=== PATIENT | male | born 1995 | race Caucasian/White ===

== ENCOUNTER 2019-08-20 06:10 | Day surgery (SDC) | payer BC ==
[~2019-08-20 06:10] MED LIST: Dextrose 5%-0.45% NaCl 1,000 ML IV SCH; Sodium Chloride 0.9% 10 ML Syringe FLUSH PRN
[2019-08-20] MEDS ORDERED: Midazolam 1 MG/ML 2 ML SDV IV ONE ×3 (06:11→07:49)
[2019-08-20] MEDS ORDERED: fentaNYL 100 MCG/2 ML SDV IV ONE ×3 (06:11→07:48)
[2019-08-20] MEDS ORDERED: fentaNYL 100 MCG/2 ML SDV ONE (06:15)
[2019-08-20] MEDS ORDERED: Midazolam 1 MG/ML 2 ML SDV ONE (06:15)
--- NOTE | 2019-08-20 09:36 | OR ---
DATE: 08/20/2019 PROCEDURES: Esophagogastroduodenoscopy and multiple pinch biopsies. INSTRUMENT USED: GIF-HQ190 Olympus video panendoscope. PREMEDICATIONS: No oral or topical anesthesia used. Fentanyl 100 mcg intravenous, Versed 2 mg intravenous. The procedure was done under pulse oximetry, BP recording, and court monitor. INDICATION: The patient with persistent chest and upper abdominal pain, unexplained and not responsive to medical measures, on PPI. Esophagogastroduodenoscopy is performed for detection of any active erosive lesions, Pena esophagus, and/or malignancy also under consideration, H pylori status to be determined. Endoscopic hemostasis therapy if needed. PROCEDURE IN DETAIL: The scope was passed with ease. Adequate visualization of the esophagus was made from proximal to distal areas. No upper esophageal lesions identified. No distal esophageal stricture. No uphill or downhill esophageal varices. No Mi-Farley tear. No evidence of erosive esophagitis by [place] criteria. No esophageal polyp or tumor mass identified. Z-line was seen at around 39 cm distal to the oral verge, configuration consistent with grade 1 by ZAP classification. No proximal gastric varices noted. Gastric fundus examination by retroflexion showed no polypoid lesions. No gastric ulcer, malignant mass, or vascular ectasia identified. Duodenal bulb showed no ulcer. Visualized second part of the duodenum was unremarkable. Multiple pinch biopsies were taken from the gastric antrum and proximal body and sent for PyloriTek test for H pylori, and if negative in an hour, the tissue is to be sent for histopathology. No bleeding was noted from any of the visualized areas at the completion of examination. Photographs were taken of the duodenal bulb, gastric antrum, fundus, and distal esophagus. IMPRESSION: Normal study. The patient tolerated the procedure well. [facility] /[id number]
--- NOTE | 2019-08-20 10:30 | LETTER ---
08/20/2019 Ying Arroyo [place] [facility] [address] [address] RE: DAVIDARTHUR VALENTINA BURROUGHS : 1995 Dear Ms. Arroyo: Mr. Arthur Cardona had esophagogastroduodenoscopy done this morning and he tolerated the procedure well. I herewith send a copy of the endoscopy note and photographs for your review. Thank you. Sincerely, [facility] /[id number]
== END 2019-08-20 10:02 | disposition home or self-care (01) ==
LOC: DL.ENDO 06:10
PROVIDERS: ATTEND Internal Medicine Gastroenterology
DX: R10.10 Upper abdominal pain, unspecified (principal); R07.9 Chest pain, unspecified; K21.9 Gastro-esophageal reflux disease without esophagitis; E66.09 Other obesity due to excess calories; Z88.0 Allergy status to penicillin; Z68.29 Body mass index [BMI] 29.0-29.9, adult
CPT/HCPCS: 43239; 87077; J2250; J3010; J7042